=== PATIENT | female | born 1960 | race Asian ===

== ENCOUNTER → 2016-07-20 | Outpatient (CLI) | payer OTHER ==
[~2016-07-20] MED LIST: ASCO500 PO; ASPI-1093 PO; CALC-51 PO; CYAN1TAB44 PO; LOSA25TA21 PO; MULT1CAP32 PO; OMEG1CAP55 PO; VITAD1000 PO
== END | disposition home or self-care (01) ==
LOC: RADPV 14:26
PROVIDERS: ATTEND Internal Medicine Geriatric Medicine
DX: M47.892 Other spondylosis, cervical region (principal); M12.88 Other specific arthropathies, not elsewhere classified, other specified site
CPT/HCPCS: 72040

== ENCOUNTER → 2017-07-20 | Outpatient (CLI) | payer OTHER ==
[~2017-07-20] MED LIST changes: -ASPI-1093 PO; +CALC-1038 PO; -CALC-51 PO; +OMEG-136 PO; -OMEG1CAP55 PO
== END | disposition home or self-care (01) ==
LOC: RADPV 11:47
PROVIDERS: ATTEND Internal Medicine Geriatric Medicine
DX: M25.562 Pain in left knee (principal)

== ENCOUNTER → 2018-06-28 | Outpatient (CLI) | payer OTHER ==
[~2018-06-28] MED LIST changes: -LOSA25TA21 PO; +LOSA25TA41 PO
== END | disposition home or self-care (01) ==
LOC: RADMN 10:22
PROVIDERS: ATTEND Internal Medicine Geriatric Medicine
DX: M54.2 Cervicalgia (principal)
CPT/HCPCS: 72141